=== PATIENT | male | born 1985 | race Caucasian/White ===

== ENCOUNTER 2022-12-21 06:13 | Day surgery (SDC) | payer BC ==
[2022-12-15 12:05] LABS: BASOPHILS % (AUTO) 0.5 % (0.0-5.0); EOSINOPHILS % (AUTO) 0.9 % (0.0-8.0); LYMPHOCYTES % (AUTO) 12.9 % (21.0-51.0); MEAN CORPUSCULAR HGB CONC 33.9 g/dL (32.0-36.0); MEAN CORPUSCULAR VOLUME 88.5 fL (79-99); MONOCYTES % (AUTO) 11.6 % (3.0-13.0); PLATELET COUNT (AUTO) 207 K/uL (130-400); RED CELL DISTRIBUTION WIDTH 12.4 % (11.0-15.5); WHITE BLOOD COUNT (AUTO) 7.7 K/uL (4.8-10.8)
[2022-12-15 12:14] VITALS: BP 118/75
[2022-12-15 12:23] LABS: POTASSIUM 3.9 mmol/L (3.5-5.1)
[~2022-12-21] VITALS: Ht 177.8 cm; Wt 64.9 kg
[2022-12-21] VITALS (18 sets, daily range): BP systolic 95–129; BP diastolic 55–91
[~2022-12-21 06:13] MED LIST: BUPIVACAINE/PF 0.5% 10ML VIAL ONE; BUSP10TA3 PO; CEFAZOLIN SODIUM 2 GM VIAL IVPB SCH; GABA-529 PO; PARO30TA60 PO
[2022-12-21] MEDS ORDERED: LACTATED RINGERS 1000ML 1,000 ML IV ONE (06:19)
[2022-12-21] MEDS ORDERED: FENTANYL CITRATE PF 50 MCG/1 ML 2ML VIAL ONE ×2 (06:43→06:47)
[2022-12-21] MEDS ORDERED: MIDAZOLAM HCL 1 MG/ML 2ML VIAL ONE ×2 (06:43→06:46)
[2022-12-21] MEDS ORDERED: SUCCINYLCHOLINE CHLORIDE 20 MG/ML 10 ML VIAL ONE (06:45)
[2022-12-21] MEDS ORDERED: PROPOFOL 10 MG/ML 20ML VIAL IV ONE (06:46)
[2022-12-21] MEDS ORDERED: DEXAMETHASONE SOD PHOSPHATE 10MG/ML 1ML VIAL ONE (06:46)
[2022-12-21] MEDS ORDERED: GLYCOPYRROLATE 1 MG/5 ML SYRINGE ONE (06:46)
[2022-12-21] MEDS ORDERED: LIDOCAINE PF 100MG/5ML (2%) SYRINGE 5ML ONE (06:46)
[2022-12-21] MEDS ORDERED: ONDANSETRON 4MG INJ ONE ×2 (06:47→10:39)
[2022-12-21] MEDS ORDERED: NEOSTIGMINE 5MG/5ML SYR IV ONE (06:47)
[2022-12-21] MEDS ORDERED: ROCURONIUM 10MG/1ML SYR 10 MG/ML ML ONE (06:47)
[2022-12-21] MEDS ORDERED: KETOROLAC 30MG VIAL (30MG/ML) ONE (10:30)
[2022-12-21] MEDS ORDERED: MEPERIDINE-PF 25 MG/ML SYG ONE (10:39)
== END 2022-12-21 11:50 | disposition home or self-care (01) ==
LOC: DAH 06:13
PROVIDERS: ATTEND Neurological Surgery
DX: G56.02 Carpal tunnel syndrome, left upper limb (principal); G56.22 Lesion of ulnar nerve, left upper limb; F17.210 Nicotine dependence, cigarettes, uncomplicated; Z20.822 Contact with and (suspected) exposure to COVID-19; Z79.899 Other long term (current) drug therapy
CPT/HCPCS: 80051; 85025; 87426; 36415; 71045; 64718; 64721; A6260; A4663; C1713; A4649 ×3; J7120; J3010; J3490 ×2; J1100; J2710; J0330; J2001; J2250; J2704; J2405 ×2; J1885; J2175; J0690; A4215; A4223; A4222; A4221